=== PATIENT | female | born 1935 | race Caucasian/White ===

== ENCOUNTER → 2020-10-05 09:59 | Outpatient (CLI) | payer MEDICARE, OTHER, SELFPAY ==
[2020-10-05 11:19] LABS: COVID19 -Nasal RAPID Negative (Negative)
== END ==
PROVIDERS: PCP Internal Medicine; Visit Provider Physician Assistant
DX: Z20.822 Contact with and (suspected) exposure to COVID-19 (principal)
CPT/HCPCS: 87635

== ENCOUNTER → 2020-10-06 08:44 | Outpatient (CLI) | payer MEDICARE, OTHER, SELFPAY ==
--- NOTE | 2020-10-06 | DI.ECHO.S_ITS ---
[facility]---------+ [facility] +---------+ : : [address] : [address] : : : : [id number] : : : : Phone: [phone]+ Echocardiogram Report + + :Name: EDUARDO ROBB Study Date: 10/06/2020 Height: 62 in : :[facility] : Weight: 134 lb : : Gender: Female BSA: 1.6 m2 : :: 1935 Age: 85 yrs BP: 155/65 mmHg: :Reason For Study: SOB : :Ordering Physician: Felipe : :Katie Stevens Performed By: Ephraim Lim : :Referring: FELIPE STEVENS : + + Interpretation Summary The left ventricle is normal in size and wall thickness. The ejection fraction is estimated to be 55-60%.MV E/A: 0.84 Med Peak E' Jarrod: 4.7 cm/sec E/E' med: 15.0 The right ventricle is mildly dilated. Right ventricular systolic function is mildly reduced. There has been no significant change in RV function since the previous study. There is moderate tricuspid regurgitation. Compared to the prior echo exam, there has been no change in TR severity. The right ventricular systolic pressure is estimated to be at least 30 mmHg based on an estimated right atrial pressure of 3 mm Hg. The ascending aorta is mildly enlarged. 3.6 cm in diameter. Previously it was 3.7 cm. Procedure: A two-dimensional transthoracic echocardiogram with color flow and Doppler was performed. The study quality was technically adequate. Comparison is made with the echocardiogram of 09/02/2015. The patient was in sinus rhythm with heart rates between 56-67 bpm during the exam. The patient had a bundle branch block rhythm during the exam. Left Ventricle: The left ventricle is normal in size and wall thickness. The ejection fraction is estimated to be 55-60%. Septal motion is consistent with conduction abnormality. There is septal wall hypokinesis. Compared to the prior exam, the left ventricular wall motion has not changed. MV E/A: 0.84 Med Peak E' Jarrod: 4.7 cm/sec E/E' med: 15.0. Right Ventricle: The right ventricle is mildly dilated. Right ventricular systolic function is mildly reduced. There has been no significant change since the previous study. Atria: There is severe biatrial enlargement. There has been no significant change since the previous study. There is no Doppler evidence for an interatrial shunt. Mitral Valve: There is mild mitral annular calcification. The mitral valve chordae are thickened and/or calcified. The mitral valve leaflets are mildly calcified. No significant mitral valve stenosis. There is mild mitral regurgitation. Aortic Valve: There is mild aortic valve sclerosis. There is discrete nodular thickening of the non- coronary cusp. The aortic valve is trileaflet. There is no aortic valve stenosis. No aortic regurgitation is present. Tricuspid Valve: The tricuspid annulus is dilated. There is moderate tricuspid regurgitation. The right ventricular systolic pressure is estimated to be at least 30 mmHg based on an estimated right atrial pressure of 3 mm Hg. Compared to the prior echo exam, there has been no change in TR severity. Pulmonic Valve: The pulmonic valve leaflets are thin and pliable; valve motion is normal. There is mild pulmonic regurgitation. Great Vessels: The aortic root is normal size. The ascending aorta is mildly enlarged. The IVC is of normal diameter and collapses greater than 50% with a sniff. This suggests a low right atrial pressure of 3 mm Hg. Pericardium/ Pleura There is no pericardial effusion. There is no pleural effusion. MMode/2D Measurements & Calculations LVIDd: 4.5 cm LVOT diam: 2.1 cm LVIDs: 3.2 cm Ao root diam: 3.3 cm FS: 28.9 % asc Aorta Diam: 3.6 cm IVSd: 0.80 cm LVPWd: 0.80 cm LV ladd. diameter/BSA (cm/m^2): 2.8 LV sys. diameter/BSA (cm/m^2): 2.0 LA dimension: 3.7 cm RA long axis: 5.4 cm LA A2 area: 20.7 cm2 LA A4 area: 17.7 cm2 LA length (vol): 5.2 cm LA vol: 60.4 ml LA vol index: 37.5 ml/m2 RVD1 (basal): 3.3 cm LVLs ap4: 5.3 cm TAPSE: 1.6 cm LVLd ap2: 6.1 cm TAPSE_phl: 1.6 cm LVLs ap2: 5.3 cm Doppler Measurements & Calculations Ao V2 max: 86.1 cm/sec LVOT Max Jarrod: 75.1 cm/sec Ao V2 mean: 61.3 cm/sec LV V1 max P.3 mmHg Ao max P.0 mmHg LV V1 VTI: 17.2 cm Ao mean P.0 mmHg VETO(I,D): 3.0 cm2 Ao V2 VTI: 19.6 cm VETO(V,D): 3.0 cm2 sev ratio: 0.88 VETO indexed to BSA (cm^2/m^2): 1.9 MV E max jarrod: 71.1 cm/sec TR max jarrod: 258.0 cm/sec MV A max jarrod: 84.8 cm/sec TR max P.6 mmHg MV E/A: 0.84 PA V2 max: 87.5 cm/sec Med Peak E' Jarrod: 4.7 cm/sec PA V2 mean: 62.4 cm/sec E/E' med: 15.0 PA mean P.0 mmHg Lat Peak E' Jarrod: 11.9 cm/sec PA pr(Accel): 45.7 mmHg E/E' lat: 6.0 E/e' average: 10.5 MV dec time: 0.26 sec SV(LVOT): 59.6 ml AV VR_phl: 0.87 VETO(VTI)/BSA_phl: 1.9 MV P1/2t-pr_phl: 77.0 msec Reading Physician:12:07 PM
--- NOTE | 2020-10-06 19:00 | DI.NM.S_ITS ---
DATE OF SERVICE: 10/06/2020 PROCEDURE: Pharmacological perfusion study. INDICATIONS: Shortness of breath with known history of coronary artery disease, hypertension. RADIOPHARMACEUTICAL: 25.1 millicurie technetium-99m Myoview IV was injected at stress and 11.8 millicurie technetium-99m Myoview IV was injected at rest. CARDIAC STRESS: The patient underwent IV Lexiscan perfusion study under the supervision of an attending staff. She remained hemodynamically stable. The patient felt shortness of breath and headache. Hence, given 100 mg of intravenous aminophylline with improvement in her symptoms. Her blood pressure then dropped from 118 systolic to 92 systolic and heart rate increased from 70s to 90s post Lexiscan. Baseline rhythm was sinus. During Lexiscan, there was up to [address]-depression, as well as T-wave inversion in inferolateral leads with intermittent PACs and PVCs. No sustained ventricular tachycardia. Those changes recovered in the recovery after 5-6 minutes. RAW DATA: Breast shadow was seen. There is increased subdiaphragmatic activity. GATED STUDY: Resting LV ejection fraction 76 percent and stress LV ejection fraction 81 percent without any external obvious wall motion abnormalities. Resting end-diastolic volume 72 mL. TID ratio 0.97, which is within normal limits. Lung/heart ratio 0.30, which is within normal limits. MYOCARDIAL PERFUSION SCAN: Stress supine, resting supine and stress prone images were compared to each other. Resting supine images revealed small size, mildly decreased perfusion of basal inferior wall, as well as moderately decreased perfusion of apex. The stress prone images revealed complete resolution of basal inferior wall defect, as well as significant improvement in apical defect, as well. CONCLUSION: 1. No obvious reversible ischemia. 2. There is evidence of breast tissue attenuation, as well as subdiaphragmatic attenuation artifact, which got significantly improved during stress prone images, as stated above. [place] is moving well. No obvious wall motion abnormalities. The stress LV ejection 81 percent, hence, most likely we are dealing with tissue attenuation artifact. The patient had an exercise perfusion study in April,, at that time also she had similar myocardial perfusion changes. The patient, however, has downsloping about [address]-depression and T- wave inversion in inferolateral leads with intermittent premature ventricular contractions and premature atrial contractions during Lexiscan. Based on perfusion scan, overall, this is a low-risk myocardial perfusion scan. Lisa Henderson - [place]/devika/philipp doc#: [id number]/job#: [id number] dd: 10/06/2020 17:30:00 dt: 10/06/2020 18:31:00 DICTATING MD/COPIES TO: Sukh Escobar MD COPIES MNE: PACO;
== END ==
PROVIDERS: PCP Internal Medicine; Referring Provider Internal Medicine Cardiovascular Disease; Visit Provider Internal Medicine Cardiovascular Disease
DX: I77.89 Other specified disorders of arteries and arterioles (principal); I08.3 Combined rheumatic disorders of mitral, aortic and tricuspid valves; R06.02 Shortness of breath; I25.10 Atherosclerotic heart disease of native coronary artery without angina pectoris; Z95.1 Presence of aortocoronary bypass graft
CPT/HCPCS: 78452; 93017; 93306; A9502; J2785

== ENCOUNTER 2022-06-11 07:16 | Emergency (ER) | payer MEDICARE, OTHER, SELFPAY ==
[2022-06-11] VITALS (16 sets, daily range): BP systolic 121–159; BP diastolic 57–72; PULSE 93–105; RESP 14–22; TEMP 36.6; O2SAT 96–98; BMI 24.7
--- NOTE | 2022-06-11 07:56 | DI.CT.S_ITS ---
PROCEDURE: CT ABDOMEN PELVIS W CON INDICATIONS: BRB intermittently rectum TECHNIQUE: After the administration of intravenous contrast, axial sections acquired from the lung bases to the pubic symphysis. Coronal and sagittal reformats were performed. For radiation dose reduction, the following was used: automated exposure control, adjustment of mA and/or kV according to patient size. COMPARISON: None. FINDINGS: Image quality: Good Lower chest: Scattered scarring and atelectasis. Partially seen sternotomy wires. Partially seen coronary disease. Solid organs: Liver is unremarkable. Phrygian cap of the gallbladder. Prominent biliary tree and pancreatic duct, probably age related. No splenomegaly. No adrenal nodules. No hydronephrosis. Suspected scarring at the left upper pole of the kidney Vessels and lymph nodes: The main portal vein is patent. There is no abdominal aortic aneurysm. No pathologic adenopathy by size criteria. Bowel and peritoneum: Possible tiny hiatal hernia. No small bowel obstruction. No drainable abscess or pathologic ascites. There is a possible ill-defined soft tissue lesion at the anal verge (). Moderate colorectal stool burden. Body wall: Possible left inguinal hernia into the canal of Nuck. Body wall is otherwise unremarkable. Left groin postsurgical changes. Pelvis: Anal possible mass as above. Mild bladder wall thickening. Bones: Degenerative changes of the pubic symphysis. No acute or suspicious osseous abnormality. IMPRESSION: Possible soft tissue mass at the anal verge, recommend correlation with anoscopy and direct visualization. Other findings as above, none appear acute Dictated by: Balta Singh M.D. on 06/11/2022 at 8:59 Approved by: Balta Singh M.D. on 06/11/2022 at 9:03
--- NOTE | 2022-06-11 07:56 | ED.GIBLEED ---
HPI - GI Bleed General Chief complaint: GI Bleed Stated complaint: GI Bleed Time Seen by Provider: 06/11/22 07:35 Source: patient and family Mode of arrival: Ambulatory History of Present Illness HPI Narrative: This is a 86-year-old female on warfarin with history of 4 vessel CABG age 49, atrial fibrillation, hypertension, dyslipidemia, hypothyroidism and prior hysterectomy. Patient states she is noticed some blood when she wiped after bowel movement she states in the last day she is had some episodes where it seemed to leak out while she was seated. She is unsure if it is coming from the rectum or the vaginal area but notes that she would only seen it before with bowel movements. Initially was just on toilet paper but has since sort of had small amounts when seated. She describes it as bright red intermittent. She denies fevers or chills. She denies any active nausea or vomiting, no abdominal back or flank pain. She states she has chronic hip pain which is always present. She denies any dysuria, urgency or frequency or hematuria. Patient states she has not had diarrhea or constipation, she has not appreciate any black stools and states she has not looked to see if there is any bright red blood mixed in with her stools. She denies any rectal pain. She denies chest pain or shortness of breath but felt lightheaded at religious yesterday while standing. She is currently on aspirin daily, warfarin, Lasix, Lipitor, losartan, metoprolol extended-release, potassium chloride and Synthroid. She states her allergies are codeine and penicillin. She denies tobacco, alcohol or illicit. Dr. Dick is her primary care physician and Dr. Escobar is her fast food shift supervisor. She is accompanied by her daughter. Related Data Allergies Allergy/AdvReac Type Severity Reaction Status Date / Time codeine Allergy Intermediate Rash Verified 06/11/22 07:47 Penicillins Allergy Intermediate Rash Verified 06/11/22 07:47 Review of Systems Review of Systems ROS Unobtainable: All systems reviewed & are unremarkable except as noted in HPI and below Patient History Social History Smoking Status: Never smoker Smoking Status: Never smoker alcohol intake frequency: 0-2 drinks per day Substance Use Type: does not use Exam Narrative Exam Narrative: GENERAL: Alert and oriented x three, elderly female in mild distress. HEENT: Head normocephalic, atraumatic, EOMI, pupils reactive, face symmetric, moist mucous membranes NECK: Supple, full range of motion CARDIOVASCULAR: Regular rate and rhythm without murmurs, rubs or gallops. No JVD. RESPIRATORY: Breath sounds equal bilaterally, no wheezes rales or rhonchi. ABDOMEN: Soft, nontender. Normoactive bowel sounds all 4 quadrants. No guarding or rebound, rigidity, no mass, on rectal exam patient has some brown stool on her underwear and rectally, a digital rectal exam no bright red blood, stool occult was negative, patient has a small amount of stool higher up but no large bolus. No obvious hemorrhoids externally. : No CVA tenderness, an external vaginal exam blood, patient does have small to moderate-sized rectocele protruding skin appears pink moist without any abrasion or breakdown. EXTREMITIES: Normal range of motion, no clubbing or edema. Neurovascularly intact NEUROLOGICAL: Cranial nerves II through XII grossly intact. Moving all extremities SKIN: Warm, dry, no petechiae, no rashes or lesions. Initial Vital Signs Initial Vital Signs: Vital Signs Temperature 97.9 F 06/11/22 07:20 Pulse Rate 100 H 06/11/22 07:20 Respiratory Rate 18 06/11/22 07:20 Blood Pressure 159/72 H 06/11/22 07:20 Pulse Oximetry 98 06/11/22 07:20 Oxygen Delivery Method Room Air 06/11/22 07:20 Course Orders Ordered: ED Orders 06/11/22 07:50 CBC Auto Diff [Complete Blood Count AUTO DIFF] Stat CMP [Comprehensive Metabolic Panel] Stat Lipase Stat PTT Partial Thromboplastin Elvin Stat Prothrombin Time INR Stat 06/11/22 07:56 CT abdomen pelvis w con Stat Vital Signs Vital signs: Vital Signs - 8 hr 06/11/22 07:20 06/11/22 07:24 06/11/22 07:25 Temperature 97.9 F Pulse Rate 100 H 97 H Respiratory Rate 18 Blood Pressure 159/72 H 159/72 H Pulse Oximetry 98 98 Oxygen Delivery Method Room Air 06/11/22 07:30 06/11/22 07:30 06/11/22 07:45 Temperature Pulse Rate 96 H 93 H Respiratory Rate 19 Blood Pressure 138/61 Pulse Oximetry 98 98 Oxygen Delivery Method 06/11/22 08:00 06/11/22 08:00 06/11/22 08:15 Temperature Pulse Rate 105 H 104 H Respiratory Rate 16 14 Blood Pressure 121/57 L Pulse Oximetry 98 97 Oxygen Delivery Method MDM - GI Bleed Lab Data 06/11/22 07:50 06/11/22 07:50 Labs: Lab Results 06/11/22 06/11/22 06/11/22 Range/Units 07:50 07:50 07:50 WBC 4.5 (4.5-11.0) X10^3/uL RBC 4.45 (4.0-5.2) X10^6/uL Hgb 13.4 (12.0-16.0) g/dL Hct 40.0 (36-46) % MCV 90.0 (80-100) fL MCH 30.1 (26-34) PG MCHC 33.4 (30-36) % RDW 15.6 H (11.6-14.8) % Plt Count 167 (150-400) X10^3/uL Neut % (Auto) 62.9 (50-75) % Lymph % (Auto) 17.5 L (25-40) % [place] % (Auto) 12.0 (3-14) % Eos % (Auto) 6.0 H (2-4) % Baso % (Auto) 1.6 (0-2) % Neut # (Auto) 2800 (6320-8639) /uL Lymph # (Auto) 800 L (8105-4857) /uL [place] # (Auto) 500 (0-900) /uL Eos # (Auto) 300 (0-450) /uL Baso # (Auto) 100 (0-100) /uL PT 36.1 H (10.1-12.7) SECONDS INR 3.1 H (0.9-1.3) APTT 53 H (26-36) SECONDS Sodium 141 (137-145) mmol/L Potassium 3.9 (3.4-5.1) mmol/L Chloride 107 (98-107) mmol/L Carbon Dioxide 25 (22-32) mmol/L BUN 20 H (7-17) mg/dL Creatinine 0.94 (0.52-1.04) mg/dL Estimated GFR 59 L (>60) mL/min BUN/Creatinine Ratio 21.3 (6-22) Glucose 103 (80-110) mg/dL Calcium 9.0 (8.4-10.2) mg/dL Total Bilirubin 0.8 (0.2-1.3) mg/dL AST 44 H (14-36) IU/L ALT 37 H (<35) IU/L Alkaline Phosphatase 114 (38-126) U/L Total Protein 7.8 (6.3-8.2) g/dL Albumin 4.4 (3.5-5.0) g/dL Globulin 3.4 (1.7-4.1) g/dL Albumin/Globulin Ratio 1.3 (1.0-2.8) Lipase 154 (23-300) U/L Point of Care Testing Stool Occult Blood Negative Imaging Data CT scan - abdomen/pelvis: Radiologist's Impression: [address] [address] [address] Scan Report Signed Patient: Lisa Henderson MR#: [id number] : 1935 Acct:[id number] Age/Sex: 86 / F Date of Service: 06/11/22 Loc: ED Accession Number: [id number] ?? Procedure: CT abdomen pelvis w con Ordering Provider: Maria D Weaver D.O. PROCEDURE:? CT ABDOMEN PELVIS W CON ? INDICATIONS:? BRB intermittently rectum ? TECHNIQUE:? After the administration of intravenous contrast, axial sections acquired from the lung bases to the pubic symphysis.? Coronal and sagittal reformats were performed.? For radiation dose reduction, the following was used:? automated exposure control, adjustment of mA and/or kV according to patient size.? ? COMPARISON:? None. ? FINDINGS:? Image quality:? Good ? Lower chest:? Scattered scarring and atelectasis.? Partially seen sternotomy wires.? Partially seen coronary disease. ? Solid organs:? Liver is unremarkable.? Phrygian cap of the gallbladder.? Prominent biliary tree and pancreatic duct, probably age related.? No splenomegaly.? No adrenal nodules.? No hydronephrosis.? Suspected scarring at the left upper pole of the kidney ? Vessels and lymph nodes:? The main portal vein is patent.? There is no abdominal aortic aneurysm.? No pathologic adenopathy by size criteria. ? Bowel and peritoneum:? Possible tiny hiatal hernia.? No small bowel obstruction.? No drainable abscess or pathologic ascites.? There is a possible ill-defined soft tissue lesion at the anal verge ().? Moderate colorectal stool burden. ? Body wall:? Possible left inguinal hernia into the canal of [place]uck.? Body wall is otherwise unremarkable.? Left groin postsurgical changes. ? Pelvis:? Anal possible mass as above.? Mild bladder wall thickening. ? Bones:? Degenerative changes of the pubic symphysis.? No acute or suspicious osseous abnormality. ? ? IMPRESSION:? Possible soft tissue mass at the anal verge, recommend correlation with anoscopy and direct visualization. ? Other findings as above, none appear acute? ? Dictated by: Balta Singh M.D. on 06/11/2022 at 8:59 ? ? Approved by: Balta Singh M.D. on 06/11/2022 at 9:03?? ECG Data Attestation: I personally reviewed and interpreted this ECG as follows: Prior ECG tracings: not available for review Interpretation: Atrial flutter with variable AV block with a rate of 78 QRS of 90 and a QTC of 428. No acute ST elevation noted. No prior for review. MDM Narrative Medical decision making narrative: This is an 86-year-old female who presents with complaint of possible rectal bleeding, patient's does not have obvious bleeding on examination stool occult was negative but does not have any other clear sources vaginally at this time. Patient is on warfarin and aspirin 81 mg both, labs including CBC, CMP, lipase, INR were obtained patient is noted to be slightly tachycardic upon arrival but in the room during my examination her rate is consistently in the 70s she is in atrial flutter with a variable AV block but has known atrial arrhythmias and is appropriately anticoagulated. Patient's labs show normal hemoglobin, INR is 1 today, patient is subtherapeutic. BUN is not elevated, renal function is normal with normal electrolytes. CT abdomen pelvis shows possible mass at the anal verge, patient does have appears to be a rectocele vaginally on exam I did not appreciate a large mass with digital rectal exam but discussed with patient I would recommend follow-up with General surgery for endoscopy and if needed colonoscopy I did discuss that I directly viewed images and seemed a little bit more at the anal opening and not at the vaginal on the imaging. Discussed return precautions, need for follow-up. Patient's INR is 1 today she was supposed to follow up for checked today so will print this so she can share with her physician for guidance on her medications. Discharge Plan Departure Patient Disposition: Home Clinical Impression: Rectal mass Instructions: DI for Rectal Bleeding Activity Restrictions/Additional Instructions: Follow up for colonscopy and recheck for possible rectal mass, please call to set up an appointment. Please call to set up an appointment. INR is 3.1 today On physical exam it is noted that you appear to have a rectocele or protrusion of the skin or mucosa from inside the vagina. No clear source of bleeding was easily found today or active bleeding today. Please return for new or worsening symptoms, new abdominal back flank or rectal pain, persistent bleeding, lightheadedness or passing out, chest pain or shortness of breath, persistent vomiting, difficulty with bowel movements or other new or concerning changes. Referrals: Domingo Dick MD [Primary Care Provider] - Mary Deras MD [Physician] - Stand Alone Forms: Patient Portal/API
[2022-06-11 08:02] LABS: Add Manual Diff / Slide Review NO; Basophils Absolute Auto 100 /uL (0-100); Basophils Percent Auto 1.6 % (0-2); Eosinophils Absolute Auto 300 /uL (0-450); Hemoglobin 13.4 g/dL (12.0-16.0); Lymphocytes Absolute Auto 800 /uL (1100-4500); Lymphocytes Percent Auto 17.5 % (25-40); Mean Corpuscular HGB Conc 33.4 % (30-36); Mean Corpuscular Hemoglobin 30.1 PG (26-34); Monocytes Absolute Auto 500 /uL (0-900); Neutrophils Absolute Auto 2800 /uL (1500-7000); Neutrophils Percent Auto 62.9 % (50-75); Platelet Count 167 X10^3/uL (150-400); Red Blood Cell Count 4.45 X10^6/uL (4.0-5.2); Red Cell Distribution Width 15.6 % (11.6-14.8); White Blood Cell Count 4.5 X10^3/uL (4.5-11.0)
[2022-06-11 08:11] LABS: INR 3.1 (0.9-1.3); Prothrombin Time 36.1 SECONDS (10.1-12.7)
[2022-06-11 08:13] LABS: PTT Partial Thromboplastin Tim 53 SECONDS (26-36)
[2022-06-11 08:15] LABS: Alanine Aminotransferase 37 IU/L (<35); Albumin 4.4 g/dL (3.5-5.0); Albumin Globulin Ratio 1.3 (1.0-2.8); Alkaline Phosphatase 114 U/L (38-126); Aspartate Aminotransferase 44 IU/L (14-36); BUN Creatinine Ratio 21.3 (6-22); Bilirubin Total 0.8 mg/dL (0.2-1.3); Blood Urea Nitrogen 20 mg/dL (7-17); Carbon Dioxide 25 mmol/L (22-32); Chloride 107 mmol/L (98-107); Estimated Glomerular Filt Rate 59 mL/min (>60); Globulin 3.4 g/dL (1.7-4.1); Glucose 103 mg/dL (80-110); HEMOLYSIS < 15 (0-50); Lipase 154 U/L (23-300); Potassium 3.9 mmol/L (3.4-5.1); Sodium 141 mmol/L (137-145); Total Protein 7.8 g/dL (6.3-8.2)
== END 2022-06-11 10:22 | disposition home or self-care (01) ==
PROVIDERS: Emergency Provider Emergency Medicine; PCP Internal Medicine
DX: K62.89 Other specified diseases of anus and rectum (principal); K62.5 Hemorrhage of anus and rectum
CPT/HCPCS: 74177; 80053; 82272; 83690; 85025; 85610; 85730; 93005; 99282; 99284; Q9967

== ENCOUNTER → 2023-01-23 14:21 | Outpatient (CLI) | payer MEDICARE, OTHER, SELFPAY ==
--- NOTE | 2023-01-23 14:24 | DI.US.S_ITS ---
PROCEDURE: US CAROTID DOPPLER BI INDICATIONS: LEFT BRUIT TECHNIQUE: Color and pulse Doppler interrogation was performed of both carotid systems, with image documentation and velocity measurements. COMPARISON: [facility], , CAROTID ARTERY DOPPLER BIL, 09/02/2015, 13:22. FINDINGS: Stenosis calculations are based on SRU (Society of Radiologists in Ultrasound) criteria. The flow velocities and the arterial waveforms are normal within both carotid arterial systems. Minimal atherosclerotic plaque is seen on both sides. The estimated degree of internal carotid artery stenosis is less than 50%. Antegrade flow is confirmed within both vertebral arteries. IMPRESSION: No hemodynamically significant stenosis is seen. Similar to the prior. Dictated by: Robert Washington M.D. on 01/23/2023 at 17:32 Approved by: Robert Washington M.D. on 01/23/2023 at 17:34
== END ==
PROVIDERS: PCP Internal Medicine; Referring Provider Internal Medicine Cardiovascular Disease; Visit Provider Internal Medicine Cardiovascular Disease
DX: R09.89 Other specified symptoms and signs involving the circulatory and respiratory systems (principal)
CPT/HCPCS: 93880

== ENCOUNTER 2023-02-06 16:11 | Emergency (ER) | payer MEDICARE, OTHER, SELFPAY ==
[2023-02-06 16:32] VITALS: BP 174/72; PULSE 74; RESP 16; TEMP 36.4; O2SAT 97; BMI 24.8
--- NOTE | 2023-02-06 18:16 | ED.EYEPROB ---
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 She takes warfarin chronically and had her INR checked just a couple of days ago. She is not been sick in any way. Last night she was trying to remove a little Ruby or small flight from her eye and rubbed it with a washcloth. She did not experience any pain or problem associated with that. This morning family member saw her and noted a dramatic swelling around her right eye and thought she should be evaluated. INR check earlier a couple of days ago was therapeutic. She is had no recent illness or injury other than an episode of vomiting a few days ago that was isolated without any associated other illness. She does have macular degeneration at baseline. Related Data Home Medications Medication Instructions Recorded Confirmed aspirin 81 mg tablet,delayed 81 mg PO DAILY 06/18/22 06/18/22 release atorvastatin 20 mg tablet (Lipitor) 20 mg PO DAILY 06/18/22 06/18/22 furosemide 20 mg tablet 40 mg PO DAILY 06/18/22 06/18/22 levothyroxine 88 mcg tablet 88 mcg PO DAILY 06/18/22 06/18/22 (Synthroid) losartan 25 mg tablet 12.5 mg PO DAILY 06/18/22 06/18/22 metoprolol succinate 25 mg 12.5 mg PO BID 06/18/22 06/18/22 tablet,extended release 24 hr potassium chloride 10 mEq 10 meq PO DAILY 06/18/22 06/18/22 capsule,extended release warfarin 5 mg tablet 2.5 mg PO DAILY 06/18/22 06/18/22 Allergies Allergy/AdvReac Type Severity Reaction Status Date / Time codeine Allergy Intermediate Rash Verified 06/18/22 11:01 Penicillins Allergy Intermediate Rash Verified 06/18/22 11:01 Patient History Surgical History (Updated 06/18/22 @ 11:27 by Gorge Hooker RN) Hx of hysterectomy Social History Smoking Status: Never smoker Smoking Status: Never smoker alcohol intake frequency: 0-2 drinks per day Substance Use Type: does not use Exam Narrative Exam Narrative: GENERAL: Alert, cooperative and in no distress. HEAD: Atraumatic. Normocephalic. EYES: Sclera are clear without icterus. Extraocular movements are full.She has diplopia with extreme lateral gaze. She has a dramatic subconjunctival hemorrhage that is circumferential and some infraorbital hematoma as well. There is no tenderness or crepitus to the orbital rim. ENT: No rhinorrhea. Oropharynx is moist. Mouth exam is benign. NECK: Supple. Full range of motion. CARDIOVASCULAR: Normal rate and rhythm without murmur gallop or rub. RESPIRATORY: Clear to auscultation. Breath sounds equal bilaterally. No wheezes, rales, or rhonchi. GASTROINTESTINAL: Abdomen soft, non-tender, nondistended. EXTREMITIES: No edema, full range of motion. No obvious trauma. BACK: Normal inspection, no CVA tenderness. NEURO: Nonfocal examination, normal speech, normal gait. SKIN: No rash or erythema of visible areas PSYCH: Normally oriented. Normal range of affect. Appropriate behavior Initial Vital Signs Initial Vital Signs: Vital Signs Temperature 97.6 F 02/06/23 16:32 Pulse Rate 74 02/06/23 16:32 Respiratory Rate 16 02/06/23 16:32 Blood Pressure 174/72 H 02/06/23 16:32 Pulse Oximetry 97 02/06/23 16:32 Oxygen Delivery Method Room Air 02/06/23 16:32 Course Orders Ordered: ED Orders 02/06/23 18:49 CBC Auto Diff [Complete Blood Count AUTO DIFF] Stat Prothrombin Time INR Stat Vital Signs Vital signs: Vital Signs - 8 hr 02/06/23 16:32 02/06/23 19:04 02/06/23 19:04 Temperature 97.6 F Pulse Rate 74 78 Respiratory Rate 16 Blood Pressure 174/72 H 154/67 H Pulse Oximetry 97 96 Oxygen Delivery Method Room Air MDM - Eye Problem Lab Data 02/06/23 18:49 Labs: Lab Results 02/06/23 Range/Units 18:49 WBC 5.1 (4.5-11.0) X10^3/uL RBC 4.21 (4.0-5.2) X10^6/uL Hgb 12.5 (12.0-16.0) g/dL Hct 37.5 (36-46) % MCV 89.0 (80-100) fL MCH 29.7 (26-34) PG MCHC 33.4 (30-36) % RDW 15.1 H (11.6-14.8) % Plt Count 145 L (150-400) X10^3/uL Neut % (Auto) 54.0 (50-75) % Lymph % (Auto) 25.9 (25-40) % Forest % (Auto) 12.6 (3-14) % Eos % (Auto) 5.9 H (2-4) % Baso % (Auto) 1.6 (0-2) % Neut # (Auto) 2700 (0290-8149) /uL Lymph # (Auto) 1300 (7366-6056) /uL Forest # (Auto) 600 (0-900) /uL Eos # (Auto) 300 (0-450) /uL Baso # (Auto) 100 (0-100) /uL PT 34.3 H (9.4-12.5) SECONDS INR 3.0 H (0.9-1.3) Discharge Plan Departure Patient Disposition: Home Clinical Impression: Subconjunctival hemorrhage Activity Restrictions/Additional Instructions: you have bleeding under the conjunctiva of the eye. This is what is causing this sensation of foreign material in your eye. There is no foreign material observed as I examine you. The bleeding will stop on its own and gradually resorb over the coming days. If it is not starting to improve in 1 week you should follow-up with your search and rescue officer. Your INR is therapeutic today so no need to change her warfarin dosing for now. Prescriptions: No Action aspirin 81 mg tablet,delayed release (DR/EC) 81 mg PO DAILY furosemide 20 mg tablet 40 mg PO DAILY atorvastatin [Lipitor] 20 mg tablet 20 mg PO DAILY losartan 25 mg tablet 12.5 mg PO DAILY metoprolol succinate 25 mg tablet extended release 24 hr 12.5 mg PO BID potassium chloride 10 mEq capsule, extended release 10 meq PO DAILY levothyroxine [Synthroid] 88 mcg tablet 88 mcg PO DAILY warfarin 5 mg tablet 2.5 mg PO DAILY Referrals: Domingo Dick MD [Primary Care Provider] - Stand Alone Forms: Patient Portal/API
[2023-02-06 19:00] LABS: Add Manual Diff / Slide Review NO; Basophils Absolute Auto 100 /uL (0-100); Basophils Percent Auto 1.6 % (0-2); Eosinophils Absolute Auto 300 /uL (0-450); Eosinophils Percent Auto 5.9 % (2-4); Hematocrit 37.5 % (36-46); Hemoglobin 12.5 g/dL (12.0-16.0); Lymphocytes Absolute Auto 1300 /uL (1100-4500); Lymphocytes Percent Auto 25.9 % (25-40); Mean Corpuscular HGB Conc 33.4 % (30-36); Mean Corpuscular Hemoglobin 29.7 PG (26-34); Monocytes Absolute Auto 600 /uL (0-900); Monocytes Percent Auto 12.6 % (3-14); Neutrophils Absolute Auto 2700 /uL (1500-7000); Platelet Count 145 X10^3/uL (150-400); Red Blood Cell Count 4.21 X10^6/uL (4.0-5.2); Red Cell Distribution Width 15.1 % (11.6-14.8); White Blood Cell Count 5.1 X10^3/uL (4.5-11.0)
[2023-02-06 19:04] VITALS: BP 154/67; PULSE 78; O2SAT 96
[2023-02-06 19:20] LABS: Prothrombin Time 34.3 SECONDS (9.4-12.5)
== END 2023-02-06 19:35 | disposition home or self-care (01) ==
PROVIDERS: Emergency Provider Family Medicine Addiction Medicine; PCP Internal Medicine
DX: H11.31 Conjunctival hemorrhage, right eye (principal)
CPT/HCPCS: 85025; 85610; 99281; 99283